=== PATIENT | male | born 1970 | race Caucasian/White ===

== ENCOUNTER → 2024-06-21 12:59 | Outpatient (REF) | payer BC, SELFPAY | LOC: RAD 12:59 | PROVIDERS: ATTENDING PHYSICIAN Family Medicine | DX: L03.116 Cellulitis of left lower limb (principal); M79.662 Pain in left lower leg; M79.89 Other specified soft tissue disorders | CPT/HCPCS: 93971 ==

== ENCOUNTER → 2024-10-14 16:33 | Outpatient (REF) | payer BC, SELFPAY | LOC: RAD 16:33 | PROVIDERS: ATTENDING PHYSICIAN Family Medicine | DX: M79.605 Pain in left leg (principal); M79.89 Other specified soft tissue disorders | CPT/HCPCS: 93971 ==